=== PATIENT | male | born 1965 | race Caucasian/White ===

== ENCOUNTER 2021-05-03 17:12 | Emergency (ER) | payer OTHER, SELFPAY ==
--- NOTE | ~2021-05-03 | XR_ITS ---
EXAMINATION: XR HAND, LEFT CLINICAL INFORMATION: Dog bite COMPARISON: None TECHNIQUE: PA, lateral, and oblique views of the left hand. FINDINGS: There is some subtle soft tissue gas seen along the dorsal aspect of the wrist on the lateral view. I do not appreciate any definitive cortical disruption to suggest fracture or dislocation. Tiny calcific densities along the ulnar aspect of the wrist of uncertain significance or etiology. Tiny ossific fragments would be difficult to exclude in this setting. Clinical correlation for focal pain in this region would be needed. Mild degenerative changes seen elsewhere. XR/XR hand LT 2V IMPRESSION: Subtle soft tissue swelling along the dorsal aspect of the wrist. There are tiny calcific densities projecting along the ulnar aspect of the distal carpal row. Etiology of these tiny calcifications is uncertain. These are too small to characterize further.
[2021-05-03 17:18] VITALS: BP 143/111; BP 190/110; PULSE 73; PULSE 78; RESP 18; TEMP 36.7; O2SAT 98; O2SAT 99; BMI 25.7
--- NOTE | 2021-05-03 17:33 | ED_ITS ---
HPI - Animal Bite General Chief Complaint: Wound/Laceration Stated Complaint: MULTIPLE DOG BITES FROM UNKNOWN DOG Time Seen by Provider: 05/03/21 17:32 Source: patient Mode of arrival: EMS Limitations: no limitations History of Present Illness HPI narrative: Patient was at home trying to remove his dog from other dog in a fight, other dog bit him on his left wrist and in the base of left thumb patient already got tetanus shot 2 days ago no other injury Related Data Previous Rx's Medication Instructions Recorded amoxicillin 875 mg-potassium 1 tab PO BID #20 tab 05/03/21 clavulanate 125 mg tablet oxycodone-acetaminophen 5 mg-325 1 tab PO Q6H PRN #20 tab 05/03/21 mg tablet (Percocet) Allergies Allergy/AdvReac Type Severity Reaction Status Date / Time No Known Allergies Allergy Verified 05/03/21 17:38 Review of Systems Review of Systems: Yes all other systems are reviewed and are negative [facility] Past Medical History Medical History HLD (hyperlipidemia) HTN (hypertension) Social History Social History Advance Directives: No Advance Directives Information Provided: No Physical Exam ED Vital Signs: Vital Signs - 24 hr 05/03/21 17:18 05/03/21 18:21 Temperature 98.1 F Pulse Rate 78 78 Respiratory Rate 18 18 Blood Pressure 143/111 H 143/104 H Pulse Oximetry 98 98 BMI result Body Mass Index 25.7 Appearance: Alert. Oriented X3. No acute distress. CVS: Normal heart rate and rhythm. Pulses normal. resp:Equal air entry bilateral, no wheezing/rales/rhonchi Abdomen: Soft and nontender. Bowel sounds are present, Skin: Skin warm and dry. Normal skin color. Normal skin turgor. Extremities: No lower extremity edema. No calf tenderness Neuro: Oriented X 3. Extrem Hand/finger images: 1. Superficial laceration about 1 cm in length no deeper injury, neurovascular intact 2. Superficial laceration 1 cm long at the base of left thumb tendons are intact Procedures Laceration Laceration 1: Site: hand Side (If applicable): left Size (cm): 2 Description: linear Depth: simple, single layer Local Anesthetic: lidocaine 2% Amount of anesthesia used (mL): 2 Skin layer closed with: nylon Size (cm): 5-0 Number of sutures: 4 Technique: simple, interrupted Discharge Plan Discharge Clinical Impression: Dog bite Patient Disposition: Home, Self-Care Instructions: Animal Bite (ED) Additional Instructions: Local care as adv Suture removal in 10-14 days Take antibiotics as advised Report to the ER/PCP if increased swelling or pus discharge Prescriptions: New oxycodone-acetaminophen [Percocet] 5-325 mg tablet 1 tab PO Q6H PRN (Reason: pain) Qty: 20 0RF amoxicillin-pot clavulanate 875-125 mg tablet 1 tab PO BID Qty: 20 0RF Interventions: ED Discharge Assessment Last Done: 05/03/21 18:44 Discharge Date/Time: 05/03/21 18:46
[2021-05-03] MEDS: Amoxicillin/Potassium Clav 875 MG TABLET PO (18:15)
[2021-05-03] MEDS: Lidocaine HCl 2 % MPF 5 ML VIAL INFILTRATI (18:16)
[2021-05-03] MEDS: oxyCODONE HCl Immed Release 5 MG TABLET 10 MG PO (18:19)
[2021-05-03 18:21] VITALS: BP 143/104; PULSE 78; RESP 18; O2SAT 98
== END 2021-05-03 18:46 | disposition home or self-care (01) ==
PROVIDERS: Emergency Provider Internal Medicine
DX: S61.412A Laceration without foreign body of left hand, initial encounter (principal); M79.642 Pain in left hand; W54.0XXA Bitten by dog, initial encounter; Y93.9 Activity, unspecified; Y92.9 Unspecified place or not applicable; Y99.9 Unspecified external cause status; Z79.899 Other long term (current) drug therapy
CPT/HCPCS: 12001; 73120; 99284

== ENCOUNTER 2023-03-10 12:25 | Emergency (ER) | payer OTHER, SELFPAY ==
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
[2023-03-10 12:42] VITALS: BP 144/96; PULSE 82; O2SAT 97; BMI 25.1
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
--- NOTE | 2023-03-10 13:00 | PC.NURSE ---
provider bedside assessing pt a this time.
[2023-03-10 13:09] VITALS: BP 130/85; PULSE 79; RESP 16; TEMP 36.6; O2SAT 100
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
[2023-03-10 13:49] LABS: MANUAL DIFF FLAG NO
[2023-03-10 13:50] LABS: Basophils Absolute Auto 0.1 X10*3/uL (0.0-0.2); Basophils Percent Auto 0.7 % (0-2); Eosinophils Absolute Auto 0.2 X10*3/uL (0.0-0.4); Eosinophils Percent Auto 2.5 % (0-4); Hematocrit 45.6 % (42.0-52.0); Imm Gran Abs Auto 0.03 X10*3/uL (0.00-0.03); Imm Gran Pct Auto 0.4 % (0.0-0.4); Lymphocytes Absolute Auto 1.9 X10*3/uL (1.2-4.9); Lymphocytes Percent Auto 22.3 % (20-40); Mean Corpuscular HGB Conc 35.1 g/dl (31.0-36.0); Mean Corpuscular Hemoglobin 33.7 pg (27.0-33.0); Mean Platelet Volume 9.5 fL (9.4-12.4); Monocytes Absolute Auto 0.6 X10*3/uL (0.1-1.2); Monocytes Percent Auto 6.8 % (2-11); Neutrophils Absolute Auto 5.6 x10*3/uL (2.0-8.3); Neutrophils Percent Auto 67.3 % (45-73); Platelet Count 285 X10*3/uL (160-400); Red Blood Count 4.75 X10*6/uL (4.60-5.80); Red Cell Distribution Width 12.1 % (11.0-16.0); White Blood Count 8.4 X10*3/uL (4.8-10.8)
[2023-03-10] MEDS: 0.9 % Sodium Chloride 1,000 ML 999 ML IV (13:52)
[2023-03-10] MEDS: oxyCODONE HCl Immed Release 5 MG TABLET 10 MG PO (13:53)
[2023-03-10] MEDS: Ondansetron ODT 4 MG TAB.RAPDIS TRANSLINGU (13:53)
--- NOTE | 2023-03-10 13:55 | PC.NURSE ---
20gIV placed in the right AC - labs drawn and sent to lab. medications administered per provider order.
[2023-03-10 14:07] LABS: Alanine Aminotransferase 52 U/L (0-40); Albumin Level 4.1 g/dL (3.5-5.0); Alkaline Phosphatase 110 U/L (39-117); Anion Gap 15 (12-20); Aspartate Amino Transferase 50 U/L (5-37); Bilirubin Direct 0.3 mg/dL (0.0-0.5); Bilirubin Total 0.6 mg/dL (0.0-1.0); Blood Urea Nitrogen 12 mg/dL (9-16); Calcium 9.1 mg/dL (8.4-10.2); Carbon Dioxide 22 mmol/L (22-29); Chloride 111 mmol/L (96-108); Creatinine Clr Calc Pharmacy 120.5; Estimated Glomerular Filt Rate > 60; Glucose Random 106 mg/dL (60-115); Lipase 31 U/L (8-78); Potassium 3.6 mmol/L (3.3-5.1); Sodium 144 mmol/L (135-145); Total Protein 6.7 g/dL (6.5-8.0)
--- NOTE | 2023-03-10 14:20 | PC.NURSE ---
pt to CT at this time.
[2023-03-10] MEDS: iohexoL 350 MG/ML 100 ML INFUS..BTL IV (14:27)
== END 2023-03-10 16:28 | disposition left against medical advice (07) ==
PROVIDERS: Emergency Provider Emergency Medicine; PCP Physician Assistant
DX: S80.212A Abrasion, left knee, initial encounter (principal); S80.211A Abrasion, right knee, initial encounter; S00.81XA Abrasion of other part of head, initial encounter; V43.52XA Car driver injured in collision with other type car in traffic accident, initial encounter; W22.10XA Striking against or struck by unspecified automobile airbag, initial encounter; Y93.9 Activity, unspecified; Y92.410 Unspecified street and highway as the place of occurrence of the external cause; Y99.9 Unspecified external cause status; R10.12 Left upper quadrant pain; I10 Essential (primary) hypertension
CPT/HCPCS: 36415; 70450; 71260; 72125; 74177; 80048; 80076; 83690; 85025; 99284; 99285; Q9967